=== PATIENT | female | born 1940 | race Caucasian/White ===

== ENCOUNTER 2016-10-31 17:55 | Inpatient (IN) | payer MEDICARE, OTHER ==
[~2016-10-31] VITALS: Ht 157.5 cm; Wt 61.7 kg
[2016-10-31] MEDS ORDERED: SODIUM CHLOR 0.9% 1000 ML INJ 1,000 ML IV SCH (18:07)
[2016-10-31 18:15] VITALS: RESP 18; O2SAT 99
[2016-10-31] MEDS ORDERED: SODIUM CHLORIDE 0.9% FLUSH 5 ML FLUSH IV FLUSH PRN ×2 (18:15→20:15)
[2016-10-31 18:19] VITALS: BP 135/69; PULSE 76; RESP 18; TEMP 98.2; O2SAT 98
--- NOTE | 2016-10-31 18:36 | RADRPT ---
EXAM DATE/TIME: 10/31/2016 18:03 [facility] COMPARISON: No previous studies available for comparison. INDICATIONS : General weakness. MEDICAL HISTORY : Stroke. SURGICAL HISTORY : None. ENCOUNTER: Initial ACUITY: 1 day PAIN SCORE: 0/10 LOCATION: Bilateral chest FINDINGS: A single view of the chest demonstrates the lungs to be symmetrically aerated without evidence of mas s, infiltrate or effusion. The cardiomediastinal contours are unremarkable. Osseous structures are intact. CONCLUSION: No evidence of acute cardiopulmonary disease. Sanket Paredes MD on October 31, 2016 at 18:34 Board Certified Radiologist. This report was verified electronically.
[2016-10-31 18:37] LABS: AUTOMATED NEUTROPHIL # 1.6 TH/MM3 (1.8-7.7); EOSINOPHIL # 0.4 TH/MM3 (0-0.4); EOSINOPHIL % 8.8 % (0.0-4.0); HEMATOCRIT 28.8 % (35.0-46.0); HEMO FLAGS DIFF FINAL; LYMPH % 46.3 % (9.0-44.0); LYMPHOCYTE # 1.9 TH/MM3 (1.0-4.8); MEAN CELL VOLUME 97.2 FL (80.0-100.0); MEAN CORPUSCULAR HEMOGLOBIN 33.1 PG (27.0-34.0); MEAN CORPUSCULAR HGB CONC 34.1 % (32.0-36.0); MONO % 5.2 % (0.0-8.0); NEUT % 38.7 % (16.0-70.0); PLATELET COUNT 205 TH/MM3 (150-450); RED BLOOD COUNT 2.96 MIL/MM3 (4.00-5.30); RED CELL DISTRIBUTION WIDTH 14.3 % (11.6-17.2); WHITE BLOOD COUNT 4.1 TH/MM3 (4.0-11.0)
[2016-10-31 18:49] LABS: APTT (PATIENT) 28.8 SEC (24.3-30.1); PROTHROMBIN TIME - PATIENT 10.8 SEC (9.8-11.6)
--- NOTE | 2016-10-31 18:53 | PD ---
HPI Chief Complaint: General Weakness Time Seen by Provider: 18:02 Travel History International Travel<30 days: No Contact w/Intl Traveler<30days: No Traveled to known affect area: No History of Present Illness HPI This 76 year-old woman who presents to the emergency department for weakness. Patient lives in an independent living [facility]. She normally walks with a walker but is independent and the rest of her ADLs. She states she gets intermittent episodes of confusion, with speech difficulties and weakness that usually last about an hour so. She started getting similar symptoms earlier this morning, progressively worse throughout the day. She called EMS because she was worried about the speech difficulties weakness and some confusion. She had a CVA in September 2012 but has minimal residual symptoms. She does have a history of Alzheimer's disease with memory problems. She otherwise has been feeling generally well and healthy. Denies any recent illness or injury. History Past Medical History Narrative Medical CVA September 2012 COPD Hypertension Alzheimer's disease Depression Leg cramps Migraines Pulmonary hypertension Social History Alcohol Use: No Tobacco Use: No Allergies-Medications (Allergen,Severity, Reaction): Coded Allergies: Latex (Verified Allergy, Unknown, 10/31/16) Lomotil (Verified Allergy, Unknown, 10/31/16) Quinolones (Verified Allergy, Unknown, 10/31/16) Review of Systems Except as stated in HPI: all other systems reviewed are Neg Physical Exam Narrative GENERAL: 76 year-old woman, well-appearing, nontoxic. SKIN: Focused skin assessment warm/dry. HEAD: Atraumatic. Normocephalic. EYES: Pupils equal and round. No scleral icterus. No injection or drainage. ENT: No nasal bleeding or discharge. Mucous membranes pink and moist. NECK: Trachea midline. No JVD. CARDIOVASCULAR: Regular rate and rhythm. No murmur appreciated. RESPIRATORY: No accessory muscle use. Clear to auscultation. Breath sounds equal bilaterally. GASTROINTESTINAL: Abdomen soft, non-tender, nondistended. Hepatic and splenic margins not palpable. MUSCULOSKELETAL: No obvious deformities. No clubbing. No cyanosis. No edema. NEUROLOGICAL: Awake and alert. No obvious facial asymmetry. Strength is intact and equal throughout the upper or lower extremity is. No gross sensory deficits. She does have intermittent speech difficulties. It is not clearly expressively aphasia but more of at word finding problems. She does express some confusion. She intermittently will follow commands, and appears a little bit giddy with emotional lability. PSYCHIATRIC: Little bit giddy and inappropriate.. Data Data Last Documented VS Vital Signs Date Time Temp Pulse Resp B/P Pulse Ox O2 Delivery O2 Flow Rate FiO2 10/31/16 18:21 75 18 98 Nasal Cannula 2 10/31/16 18:19 98.2 135/69 Orders Electrocardiogram (10/31/16 18:07) Ammonia (10/31/16 18:07) Complete Blood Count With Diff (10/31/16 18:07) Comprehensive Metabolic Panel (10/31/16 18:07) Prothrombin Time / Inr (Pt) (10/31/16 18:07) Act Partial Throm Time (Ptt) (10/31/16 18:07) Troponin I (10/31/16 18:07) Thyroid Stimulating Hormone (10/31/16 18:07) Urinalysis - C+S If Indicated (10/31/16 18:) Chest, Single Ap (10/31/16 18:07) Ct Brain W/O Iv Contrast(Rout) (10/31/16 18:07) Blood Glucose (10/31/16 18:07) Ecg Monitoring (10/31/16 18:07) Iv Access Insert/Monitor (10/31/16 18:07) Cath For Specimen (10/31/16 18:07) Oximetry (10/31/16 18:07) Sodium Chloride 0.9% Flush (Ns Flush) (10/31/16 18:15) Sodium Chlor 0.9% 1000 Ml Inj (Ns 1000 M (10/31/16 18:07) Drug Screen, Random Urine (10/31/16 18:07) Alcohol (Ethanol) (10/31/16 18:07) Labs Laboratory Tests Test 10/31/16 18:11 White Blood Count 4.1 TH/MM3 Red Blood Count 2.96 MIL/MM3 Hemoglobin 9.8 GM/DL Hematocrit 28.8 % Mean Corpuscular Volume 97.2 FL Mean Corpuscular Hemoglobin 33.1 PG Mean Corpuscular Hemoglobin 34.1 % Concent Red Cell Distribution Width 14.3 % Platelet Count 205 TH/MM3 Mean Platelet Volume 8.4 FL Neutrophils (%) (Auto) 38.7 % Lymphocytes (%) (Auto) 46.3 % Monocytes (%) (Auto) 5.2 % Eosinophils (%) (Auto) 8.8 % Basophils (%) (Auto) 1.0 % Neutrophils # (Auto) 1.6 TH/MM3 Lymphocytes # (Auto) 1.9 TH/MM3 Monocytes # (Auto) 0.2 TH/MM3 Eosinophils # (Auto) 0.4 TH/MM3 Basophils # (Auto) 0.0 TH/MM3 CBC Comment DIFF FINAL Differential Comment MDM Medical Decision Making Medical Screen Exam Complete: Yes Emergency Medical Condition: Yes Interpretation(s) My review of EKG: Normal sinus rhythm at a rate of 71, leftward axis, normal intervals, no definite evidence of acute ischemia. Differential Diagnosis CVA, infection, recrudescence of old stroke symptoms, weakness, electrolyte abnormality, other Narrative Course Medical decision making This is a 76 year-old woman who presents to the emergency department complaining of speech difficulties, weakness, with some confusion. 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 We'll check CT, labs, x-ray, urinalysis, reassess. Dell Reed MD Oct 31, 2016 18:53
[2016-10-31 18:59] LABS: ANION GAP 8 MEQ/L (5-15); AST (GOT) 18 U/L (15-37); BICARBONATE 26.3 MEQ/L (21.0-32.0); BLOOD UREA NITROGEN 21 MG/DL (7-18); CHLORIDE 106 MEQ/L (98-107); GLOMERULAR FILTRATION RATE 56 ML/MIN (>89); POTASSIUM 3.8 MEQ/L (3.5-5.1); SODIUM (NA) 140 MEQ/L (136-145)
--- NOTE | 2016-10-31 18:59 | RADRPT ---
EXAM DATE/TIME: 10/31/2016 18:29 [facility] COMPARISON: No previous studies available for comparison. INDICATIONS : Altered mental status. RADIATION DOSE: 56.35 CTDIvol (mGy) MEDICAL HISTORY : Stroke. Dementia. SURGICAL HISTORY : None. ENCOUNTER: Initial ACUITY: 1 day PAIN SCALE: 0/10 LOCATION: Bilateral head TECHNIQUE: Multiple contiguous axial images were obtained of the head. Using automated exposure control and adj ustment of the mA and/or kV according to patient size, radiation dose was kept as low as reasonably a chievable to obtain optimal diagnostic quality images. DICOM format image data is available electro nically for review and comparison. FINDINGS: CEREBRUM: The ventricles are normal for age. No evidence of midline shift, mass lesion, hemorrhage or acute in farction. No extra-axial fluid collections are seen. POSTERIOR FOSSA: The cerebellum and brainstem are intact. The 4th ventricle is midline. The cerebellopontine angle i s unremarkable. EXTRACRANIAL: The visualized portion of the orbits is intact. SKULL: The calvaria is intact. No evidence of skull fracture. CONCLUSION: Normal examination for a patient of this age. Andrews Andrews MD on October 31, 2016 at 18:56 Board Certified Radiologist. This report was verified electronically.
[2016-10-31 19:00] LABS: ALT (GPT) 19 U/L (10-53)
[2016-10-31 19:10] LABS: ALKALINE PHOSPHATASE 86 U/L (45-117); TOTAL BILIRUBIN ADULT 0.1 MG/DL (0.2-1.0)
[2016-10-31 19:14] VITALS: BP 173/77; PULSE 71; RESP 18; O2SAT 97
[2016-10-31 19:28] LABS: BLOOD, URINE SMALL (NEG); GLUCOSE,URINE NEG (NEG); HYALINE CAST, URINE 2 /lpf (RARE); KETONE, URINE NEG (NEG); NITRITE,URINE NEG (NEG); PH, URINE 5.5 (5.0-8.5); URINE COLOR YELLOW (YELLW/STRAW)
[2016-10-31 19:29] LABS: COMMENT (UR) CATH-CULT NOT IND; CULTURE IF INDICATED CATH CULTURE NOT IND
[2016-10-31 19:35] LABS: AMPHETAMINE, URINE NEG (NEG); BARBITURATES, URINE NEG (NEG); COCAINE, URINE NEG (NEG)
[2016-10-31] MEDS ORDERED: SALI0.653 EACH NARE (19:39)
[2016-10-31] MEDS ORDERED: NITRSPR6 PO (19:39)
[2016-10-31] MEDS ORDERED: FIOR30CA12 PO (19:39)
[2016-10-31] MEDS ORDERED: FOLI400T PO (19:39)
[2016-10-31] MEDS ORDERED: FISH100020 PO (19:39)
[2016-10-31] MEDS ORDERED: MOME17I EACH NARE (19:39)
[2016-10-31] MEDS ORDERED: BROV15NE NEB (19:39)
[2016-10-31] MEDS ORDERED: VITA400T20 PO (19:39)
[2016-10-31] MEDS ORDERED: MONT10TA2 PO (19:39)
[2016-10-31] MEDS ORDERED: LISI-515 PO (19:39)
[2016-10-31] MEDS ORDERED: CHOL4POW3 PO (19:39)
[2016-10-31] MEDS ORDERED: QUIN324C2 PO (19:39)
[2016-10-31] MEDS ORDERED: MULTTAB4 PO (19:39)
[2016-10-31] MEDS ORDERED: VITA250T3 PO (19:39)
[2016-10-31] MEDS ORDERED: WELL200T PO (19:39)
[2016-10-31] MEDS ORDERED: VITA250T25 PO (19:39)
[2016-10-31] MEDS ORDERED: VITATAB11 PO (19:39)
[2016-10-31] MEDS ORDERED: CALC600T25 PO (19:39)
[2016-10-31] MEDS ORDERED: GABA300C5 PO (19:39)
[2016-10-31] MEDS ORDERED: VITD400 PO (19:39)
[2016-10-31] MEDS ORDERED: CLAR10TA7 PO (19:39)
[2016-10-31] MEDS ORDERED: MEMA28CA PO (19:39)
[2016-10-31] MEDS ORDERED: ARIC23TA PO (19:39)
[2016-10-31] MEDS ORDERED: CYCL1TAB29 PO (19:39)
[2016-10-31] MEDS ORDERED: GUAI400T8 PO (19:39)
[2016-10-31] MEDS ORDERED: EPIN0.3A2 IM (19:39)
[2016-10-31] MEDS ORDERED: IBUP800T23 PO (19:39)
[2016-10-31] MEDS ORDERED: SPIRCAP INH (19:39)
--- NOTE | 2016-10-31 19:50 | PD ---
Data Data Last Documented VS Vital Signs Date Time Temp Pulse Resp B/P Pulse Ox O2 Delivery O2 Flow Rate FiO2 10/31/16 19:14 71 18 173/77 97 10/31/16 18:21 Nasal Cannula 2 10/31/16 18:19 98.2 Orders Electrocardiogram (10/31/16 18:07) Ammonia (10/31/16 18:07) Complete Blood Count With Diff (10/31/16 18:07) Comprehensive Metabolic Panel (10/31/16 18:07) Prothrombin Time / Inr (Pt) (10/31/16 18:07) Act Partial Throm Time (Ptt) (10/31/16 18:07) Troponin I (10/31/16 18:07) Thyroid Stimulating Hormone (10/31/16 18:07) Urinalysis - C+S If Indicated (10/31/16 18:07) Chest, Single Ap (10/31/16 18:07) Ct Brain W/O Iv Contrast(Rout) (10/31/16 18:07) Blood Glucose (10/31/16 18:07) Ecg Monitoring (10/31/16 18:07) Iv Access Insert/Monitor (10/31/16 18:07) Cath For Specimen (10/31/16 18:07) Oximetry (10/31/16 18:07) Sodium Chloride 0.9% Flush (Ns Flush) (10/31/16 18:15) Sodium Chlor 0.9% 1000 Ml Inj (Ns 1000 M (10/31/16 18:07) Drug Screen, Random Urine (10/31/16 18:07) Alcohol (Ethanol) (10/31/16 18:11) Labs Laboratory Tests Test 10/31/16 10/31/16 18:11 18:55 White Blood Count 4.1 TH/MM3 Red Blood Count 2.96 MIL/MM3 Hemoglobin 9.8 GM/DL Hematocrit 28.8 % Mean Corpuscular Volume 97.2 FL Mean Corpuscular Hemoglobin 33.1 PG Mean Corpuscular Hemoglobin 34.1 % Concent Red Cell Distribution Width 14.3 % Platelet Count 205 TH/MM3 Mean Platelet Volume 8.4 FL Neutrophils (%) (Auto) 38.7 % Lymphocytes (%) (Auto) 46.3 % Monocytes (%) (Auto) 5.2 % Eosinophils (%) (Auto) 8.8 % Basophils (%) (Auto) 1.0 % Neutrophils # (Auto) 1.6 TH/MM3 Lymphocytes # (Auto) 1.9 TH/MM3 Monocytes # (Auto) 0.2 TH/MM3 Eosinophils # (Auto) 0.4 TH/MM3 Basophils # (Auto) 0.0 TH/MM3 CBC Comment DIFF FINAL Differential Comment Prothrombin Time 10.8 SEC Prothromb Time International 1.0 RATIO Ratio Activated Partial 28.8 SEC Thromboplast Time Sodium Level 140 MEQ/L Potassium Level 3.8 MEQ/L Chloride Level 106 MEQ/L Carbon Dioxide Level 26.3 MEQ/L Anion Gap 8 MEQ/L Blood Urea Nitrogen 21 MG/DL Creatinine 0.97 MG/DL Estimat Glomerular Filtration 56 ML/MIN Rate Random Glucose 80 MG/DL Calcium Level 8.0 MG/DL Total Bilirubin 0.1 MG/DL Aspartate Amino Transf 18 U/L (AST/SGOT) Alanine Aminotransferase 19 U/L (ALT/SGPT) Alkaline Phosphatase 86 U/L Ammonia 19 MCMOL/L Troponin I LESS THAN 0.02 NG/ML Total Protein 6.0 GM/DL Albumin 3.2 GM/DL Thyroid Stimulating Hormone 2.410 uIU/ML 3rd Gen Ethyl Alcohol Level LESS THAN 3 MG/DL Urine Color YELLOW Urine Turbidity CLEAR Urine pH 5.5 Urine Specific Ethan 1.009 Urine Protein NEG mg/dL Urine Glucose (UA) NEG mg/dL Urine Ketones NEG mg/dL Urine Occult Blood SMALL Urine Nitrite NEG Urine Bilirubin NEG Urine Urobilinogen LESS THAN 2.0 MG/DL Urine Leukocyte Esterase NEG Urine RBC 1 /hpf Urine WBC LESS THAN 1 /hpf Urine Hyaline Casts 2 /lpf Microscopic Urinalysis Comment CATH-CULT NOT IND Urine Opiates Screen NEG Urine Barbiturates Screen NEG Urine Amphetamines Screen NEG Urine Benzodiazepines Screen NEG Urine Cocaine Screen NEG Urine Cannabinoids Screen NEG MDM Supervised Visit with JEMIMA: No Narrative Course Patient signed out to me by previous provider. Please see associated no for further details. In short patient is a 76-year-old female with history of previous CVA who is been having intermittent spells of aphasia and weakness that have been lasting less than one hour. Today however she has been having speech difficulty, primarily word finding difficulty all day. There are no other focal neural findings. CT of the brain was negative. Patient signout to me pending laboratory workup for ultimate admission for TIA versus CVA. Laboratory workup notable for hemoglobin 9.8. Calcium slightly low at 8.0. Chest x-ray and head CT were reviewed and negative. Patient will be admitted for further neuro workup. Diagnosis Primary Impression: Word finding difficulty Additional Impression: CVA (cerebral vascular accident) Qualified Code: I63.9 - Cerebrovascular accident (CVA), unspecified mechanism Admitting Information Admitting Physician Requests: Admit Cindi Li MD Oct 31, 2016 19:50
[2016-10-31] MEDS ORDERED: MORPHINE SULFATE 4 MG/ML INJ IV PRN (20:15)
[2016-10-31] MEDS ORDERED: ACETAMINOPHEN 325 MG TAB PO PRN (20:15)
[2016-10-31] MEDS ORDERED: ENALAPRILAT 1.25 MG/ML VIAL IV PRN (20:15)
[2016-10-31] MEDS ORDERED: DEXTROSE 50% IN WATER 50 ML VIAL(D50) IV PUSH PRN (20:15)
[2016-10-31] MEDS ORDERED: SODIUM CHLORIDE 0.9% FLUSH 10 ML FLUSH IV FLUSH PRN (20:15)
[2016-10-31] MEDS ORDERED: GLUCAGON 1 MG/ML VIAL OTHER PRN (20:15)
[2016-10-31] MEDS ORDERED: BISACODYL 10 MG SUPP RECTAL PRN (20:15)
[2016-10-31] MEDS ORDERED: MAGNESIUM HYDROXIDE SUSP 30 ML CUP PO PRN (20:15)
[2016-10-31] MEDS ORDERED: LACTULOSE SYRUP 20 GM/30 ML CUP PO PRN (20:15)
[2016-10-31] MEDS ORDERED: SENNOSIDES 8.6 MG TAB PO PRN (20:15)
[2016-10-31] MEDS ORDERED: ONDANSETRON HCL 4 MG/2 ML VIAL IVP PRN (20:15)
--- NOTE | 2016-10-31 20:19 | HHI.HP ---
[facility] No Primary Care Physician Admission Diagnosis CVA, word-finding difficulties Diagnoses: (1) CVA (cerebral vascular accident) Diagnosis: Principal (2) HTN (hypertension) Diagnosis: Principal (3) Dehydration Diagnosis: Principal (4) COPD (chronic obstructive pulmonary disease) Diagnosis: Principal (5) Dementia Diagnosis: Principal Travel History International Travel<30 Days: No Contact w/Intl Traveler <30 Da: No Traveled to Known Affected Are: No History of Present Illness This is a 76-year-old female with a PMH of HTN, COPD, Dementia, Depression and h /o CVA who presented to the ER with complaints of generalized weakness in addition to intermittent episodes of speech difficulty. Per patient, she is noted "stuttering" of her speech over the last 1wk. Symptoms would last approx 1 hour and then resolve, thought she was having mini stroke, did not seek medical attention as symptoms resolved. Today, w/ recurrent stuttering/speech difficulty, however symptoms persistent. Denies motor weakness or facial droop. On arrival, BP 135/69, HR 76, O2 sat 98% on 2L NC, afebrile. CBC unremarkable except for anemia, hemoglobin 9.8, no previous labs for comparison. BUN 21, GFR 56. INR 1.0. UA negative. Urine Drug screen negative. Alcohol negative. CXR with no acute findings. CT Head normal. Review of Systems Except as stated in HPI: all other systems reviewed are Neg ROS: 14 point review of systems otherwise negative. Past Family Social History Past Medical History PMH: HTN, COPD, Dementia, Depression and h/o CVA Past Surgical History PAST SURGICAL HISTORY: None Allergies: Coded Allergies: Latex (Verified Allergy, Unknown, 10/31/16) Lomotil (Verified Allergy, Unknown, 10/31/16) Quinolones (Verified Allergy, Unknown, 10/31/16) Family History PAST FAMILY HISTORY: Reviewed. No h/o DM or CAD Social History PAST SOCIAL HISTORY: Negative for alcohol, tobacco or drugs. Physical Exam Vital Signs Vital Signs Date Time Temp Pulse Resp B/P Pulse Ox O2 Delivery O2 Flow Rate FiO2 10/31/16 19:14 71 18 173/77 97 10/31/16 18:21 75 18 98 Nasal Cannula 2 10/31/16 18:19 98.2 76 18 135/69 98 Nasal Cannula 2 10/31/16 18:15 18 99 Room Air Physical Exam PE: GENERAL: Elderly female in no acute distress. HEENT: PERRLA, EOMI. No scleral icterus or conjunctival pallor. No lid lag or facial droop. CARDIOVASCULAR: Regular rate and rhythm. No obvious murmurs to auscultation. No chest tenderness to palpation. RESPIRATORY: No obvious rhonchi or wheezing. Clear to auscultation. Breath sounds equal bilaterally. GASTROINTESTINAL: Abdomen soft, non-tender, nondistended. BS normal. MUSCULOSKELETAL: Extremities without clubbing, cyanosis, or edema. No obvious deformities. NEUROLOGICAL: Awake, alert and oriented x4. Episodes of word finding difficulty and expressive aphasia. No focal neurologic deficits. Moving both upper and lower extremities spontaneously. Laboratory Laboratory Tests Test 10/31/16 10/31/16 18:11 18:55 White Blood Count 4.1 Red Blood Count 2.96 Hemoglobin 9.8 Hematocrit 28.8 Mean Corpuscular Volume 97.2 Mean Corpuscular Hemoglobin 33.1 Mean Corpuscular Hemoglobin 34.1 Concent Red Cell Distribution Width 14.3 Platelet Count 205 Mean Platelet Volume 8.4 Neutrophils (%) (Auto) 38.7 Lymphocytes (%) (Auto) 46.3 Monocytes (%) (Auto) 5.2 Eosinophils (%) (Auto) 8.8 Basophils (%) (Auto) 1.0 Neutrophils # (Auto) 1.6 Lymphocytes # (Auto) 1.9 Monocytes # (Auto) 0.2 Eosinophils # (Auto) 0.4 Basophils # (Auto) 0.0 CBC Comment DIFF FINAL Differential Comment Prothrombin Time 10.8 Prothromb Time International 1.0 Ratio Activated Partial 28.8 Thromboplast Time Sodium Level 140 Potassium Level 3.8 Chloride Level 106 Carbon Dioxide Level 26.3 Anion Gap 8 Blood Urea Nitrogen 21 Creatinine 0.97 Estimat Glomerular Filtration 56 Rate Random Glucose 80 Calcium Level 8.0 Total Bilirubin 0.1 Aspartate Amino Transf 18 (AST/SGOT) Alanine Aminotransferase 19 (ALT/SGPT) Alkaline Phosphatase 86 Ammonia 19 Troponin I LESS THAN 0.02 Total Protein 6.0 Albumin 3.2 Thyroid Stimulating Hormone 2.410 3rd Gen Ethyl Alcohol Level LESS THAN 3 Urine Color YELLOW Urine Turbidity CLEAR Urine pH 5.5 Urine Specific [place] 1.009 Urine Protein NEG Urine Glucose (UA) NEG Urine Ketones NEG Urine Occult Blood SMALL Urine Nitrite NEG Urine Bilirubin NEG Urine Urobilinogen LESS THAN 2.0 Urine Leukocyte Esterase NEG Urine RBC 1 Urine WBC LESS THAN 1 Urine Hyaline Casts 2 Microscopic Urinalysis Comment CATH-CULT NOT IND Urine Opiates Screen NEG Urine Barbiturates Screen NEG Urine Amphetamines Screen NEG Urine Benzodiazepines Screen NEG Urine Cocaine Screen NEG Urine Cannabinoids Screen NEG Result Diagram: 10/31/16181010/31/161810 Assessment and Plan Problem List: (1) CVA (cerebral vascular accident) ICD Code: I63.9 Status: Acute (2) Dehydration ICD Code: E86.0 Status: Acute (3) Dementia ICD Code: F03.90 Status: Acute (4) COPD (chronic obstructive pulmonary disease) ICD Code: J44.9 Status: Acute (5) HTN (hypertension) ICD Code: I10 Status: Acute Assessment and Plan A/P: 1. CVA: intermittent episodes of stuttering/word finding difficulty x1 wk, now w/ persistent symptoms. H/o CVA. CT Head w/ no acute findings, images reviewed by me. NPO, IVF, Check MRI/Carotids, Check Echo, Lipid Profile, Hgb A1c, PT/Speech eval. Consult Neurology for further evaluation. 2. Dehydration: BUN 21, GFR 56, no previous labs for comparison. U/a negative. IVF, repeat labs in am. 3. COPD: Chronic Respiratory Failure. Stable. Resume home Spiriva/MDI/Neb. 4. Dementia: Stable. Resume home medications. 5. HTN: [id number]'s while in ER, hold BP meds, permissive HTN. Monitor BP, antihypertensives for BP >220 6. DVT Prophylaxis: Lovenox 7. Social work for d/c planning as needed. 8. Case discussed w/ ER physician at length. Physician Certification 2 Midnight Certification Type: Admission for Inpatient Services Order for Inpatient Services The services are ordered in accordance with Medicare regulations or non- Medicare payer requirements, as applicable. In the case of services not specified as inpatient-only, they are appropriately provided as inpatient services in accordance with the 2-midnight benchmark. Estimated LOS (days): 2 days is the estimated time the patient will need to remain in the hospital, assuming treatment plan goals are met and no additional complications. Post-Hospital Plan: Not yet determined Problem Qualifiers (1) CVA (cerebral vascular accident): Qualified Code: I63.9 - Cerebrovascular accident (CVA), unspecified mechanism Candy Coleman MD Oct 31, 2016 20:19
[2016-10-31 20:23] VITALS: O2SAT 96
[2016-10-31] MEDS: SODIUM CHLORIDE 0.9% FLUSH 10 ML FLUSH IV FLUSH SCH (20:32)
[2016-10-31] MEDS: INSULIN ASPART SUPPLEMENTAL SCALE SQ SCH (20:37)
[2016-10-31] MEDS: PRAVASTATIN SOD 40 MG TAB PO SCH (20:43)
[2016-10-31] MEDS: DOCUSATE SODIUM 50 MG/SENNA 8.6 MG TAB PO SCH (20:44)
[2016-10-31] MEDS: ENOXAPARIN SODIUM 40 MG/0.4 ML SYRINGE SQ SCH (20:44)
[2016-10-31] MEDS ORDERED: SODIUM CHLORIDE 0.9% FLUSH 5 ML FLUSH IV FLUSH SCH (21:00)
[2016-10-31 21:06] VITALS: BP 160/77; PULSE 71; RESP 18; TEMP 96; O2SAT 98
--- NOTE | 2016-10-31 22:01 | RADRPT ---
EXAM DATE/TIME: 10/31/2016 21:11 [facility] COMPARISON: No previous studies available for comparison. INDICATIONS : Cerebrovascular accident. MEDICAL HISTORY : Hypercholesterolemia. Chronic obstructive pulmonary disease. Hypertension. Cerebrovascular accident. Alzheimer's disease. depression. SURGICAL HISTORY : None. ENCOUNTER: Initial ACUITY: 1 day PAIN SCORE: 8/10 LOCATION: Bilateral neck. PEAK SYSTOLIC VELOCITIES (cm/sec): ICA/CCA RATIO: Right: 0.9 Left: 0.9 ICA: Right: 72.8 Left: 65.1 CCA: Right: 84.7 Left: 72.9 ECA: Right: 72.8 Left: 74.7 VERTEBRAL: Right: 53.1 antegrade Left: 51.0 antegrade Elevated flow velocities and ICA/CCA ratios have been found to correlate with increased degrees of vessel stenosis, calculated as percentage of diameter relative to a normal segment of distal ICA/CCA FINDINGS: RIGHT CAROTID: No significant stenosis is visualized. The waveforms are within normal limits. LEFT CAROTID: No significant stenosis is visualized. The waveforms are within normal limits. VERTEBRAL ARTERIES: Antegrade flow is seen in both vertebral arteries. MISCELLANEOUS: None. CONCLUSION: 1. Mild visible plaque formation in the carotid arteries bilaterally without hemodynamically signific ant stenosis. Andrews Andrews MD on October 31, 2016 at 21:57 Board Certified Radiologist. This report was verified electronically.
[2016-10-31 22:47] VITALS: PULSE 81
[2016-11-01] VITALS (12 sets, daily range): BP systolic 96–155; BP diastolic 53–75; PULSE 62–82; RESP 16–18; TEMP 96.6–97.1; O2SAT 94–97
[2016-11-01] MEDS: ACETAMINOPHEN/HYDROcodone 325 MG/5 MG TAB PO PRN ×5 (00:58→18:11)
[2016-11-01] MEDS: INSULIN ASPART SUPPLEMENTAL SCALE SQ SCH ×4 (07:00→20:55)
[2016-11-01] MEDS: DOCUSATE SODIUM 50 MG/SENNA 8.6 MG TAB PO SCH ×2 (08:25→20:17)
[2016-11-01] MEDS: SODIUM CHLORIDE 0.9% FLUSH 10 ML FLUSH IV FLUSH SCH ×2 (08:25→20:16)
[2016-11-01 08:28] LABS: AUTOMATED NEUTROPHIL # 1.4 TH/MM3 (1.8-7.7); BASOPHIL % 0.8 % (0.0-2.0); EOSINOPHIL # 0.3 TH/MM3 (0-0.4); EOSINOPHIL % 7.6 % (0.0-4.0); HEMO FLAGS DIFF FINAL; LYMPH % 48.4 % (9.0-44.0); LYMPHOCYTE # 1.8 TH/MM3 (1.0-4.8); MEAN CELL VOLUME 97.1 FL (80.0-100.0); MEAN CORPUSCULAR HEMOGLOBIN 33.4 PG (27.0-34.0); MEAN CORPUSCULAR HGB CONC 34.4 % (32.0-36.0); MONO % 5.3 % (0.0-8.0); NEUT % 37.9 % (16.0-70.0); PLATELET COUNT 168 TH/MM3 (150-450); RED BLOOD COUNT 2.88 MIL/MM3 (4.00-5.30); RED CELL DISTRIBUTION WIDTH 14.3 % (11.6-17.2); WHITE BLOOD COUNT 3.7 TH/MM3 (4.0-11.0)
[2016-11-01] MEDS ORDERED: ASPIRIN 81 MG CHEW TAB PO SCH (09:00)
[2016-11-01 09:03] LABS: ALKALINE PHOSPHATASE 75 U/L (45-117); ALT (GPT) 20 U/L (10-53); ANION GAP 6 MEQ/L (5-15); AST (GOT) 17 U/L (15-37); BICARBONATE 27.8 MEQ/L (21.0-32.0); BLOOD UREA NITROGEN 16 MG/DL (7-18); CHLORIDE 110 MEQ/L (98-107); GLOMERULAR FILTRATION RATE 66 ML/MIN (>89); HDL CHOLESTEROL 69.5 MG/DL (40.0-60.0); LDL CHOLESTEROL 92 MG/DL (0-99); POTASSIUM 3.8 MEQ/L (3.5-5.1); SODIUM (NA) 144 MEQ/L (136-145); TOTAL BILIRUBIN ADULT 0.2 MG/DL (0.2-1.0)
[2016-11-01] MEDS ORDERED: LORazepam 2 MG/ML VIAL IV PUSH PRN (09:45)
--- NOTE | 2016-11-01 11:05 | RADRPT ---
EXAM DATE/TIME: 11/01/2016 10:36 [facility] COMPARISON: CT BRAIN W/O CONTRAST, October 31, 2016, 18:29. INDICATIONS : Stuttering speech. MEDICAL HISTORY : Hypertension. Chronic obstructive pulmonary disease. Dementia. CVA. SURGICAL HISTORY : Hysterectomy. ENCOUNTER: Initial ACUITY: 1 day PAIN SCORE: 0/10 LOCATION: cranial TECHNIQUE: Multiplanar, multisequence MRI of the brain was performed without contrast. FINDINGS: CEREBRUM: There is mild to moderate generalized atrophy. There is mild ventriculomegaly but ventricles are norm al in size given the degree of atrophy present. No midline shift, mass lesion, hemorrhage or acute i nfarction. No extraaxial fluid collections are seen. The pituitary gland and suprasellar cistern ar e normal in configuration. WHITE MATTER: There is mild periventricular white matter and subcortical white matter signal change. POSTERIOR FOSSA: The cerebellum and brainstem demonstrate no acute finding. The 4th ventricle is midline. The cerebel lopontine angle is unremarkable. The cerebellar tonsils are normal in position. DIFFUSION IMAGING: No focal areas of restricted diffusion are seen. No evidence of acute infarction. EXTRACRANIAL: The visualized portions of the orbits and paranasal sinuses are unremarkable. CONCLUSION: 1. No acute intracranial abnormality is identified. There are no findings to indicate recent ischemia . 2. Nonacute findings include generalized atrophy and mild periventricular and subcortical white matte r signal change characteristic of chronic microvascular ischemia. Sanket Perdue MD on November 01, 2016 at 11:01 Board Certified Radiologist. This report was verified electronically.
[2016-11-01 12:52] LABS: HEMOGLOBIN A1b 1.5 %; HEMOGLOBIN Ao 85.8 %; HEMOGLOBIN LA1C 1.9 %; HEMOGLOBIN P3 5.3 %
[2016-11-01] MEDS: TOPIRAMATE 25 MG TAB PO SCH ×2 (13:17→20:17)
--- NOTE | 2016-11-01 13:21 | MB ---
cc: BRITTANY CHRISTIAN DATE OF CONSULTATION: 11/01/2016. REASON FOR CONSULTATION: TIA. HISTORY OF PRESENT ILLNESS: The patient is a 76-year-old female who tells me she has Alzheimer's disease and has been having TIAs. She states she that she gets spells once a day for the past year where she suddenly may get slurred speech and balance difficulty. This usually resolves after 15 minutes but yesterday had an episode lasting six hours with resolution. She does have a history of migraine headaches. PAST MEDICAL HISTORY: 1. She tells me that she has "Alzheimer's dementia" since 2008. 2. She has a history of stroke in the past. 3. Hypertension. 4. COPD. 5. Depression. ALLERGIES: 1. LATEX. 2. LOMOTIL. 3. QUINOLONES. CURRENT MEDICATIONS: 1. Aspirin 81 milligrams daily. 2. Ativan PRN. 3. Pravachol 40 milligrams daily. 4. Insulin. 5. Enalapril PRN. 6. Morphine sulfate PRN. 7. Hydrocodone PRN. 8. Acetaminophen PRN. NEUROLOGICAL EXAMINATION: VITAL SIGNS: Her blood pressure is 148/70, pulse is 82, respirations 16, temperature 96.7 degrees. HIGHER CORTICAL FUNCTIONS: She is alert and oriented x3 and recalls one out of three objects in three minutes. Her remote memory is normal. She can name objects normally. Her calculations are normal. Speech is fluent with no errors. CRANIAL NERVES: Intact. MOTOR EXAM: Motor exam is normal with normal strength and tone. REFLEXES: Reflexes are symmetric. There is no Babinski. CEREBELLAR: Normal. IMAGING STUDIES: MRI of the brain shows chronic ischemic and atrophy. No acute change. No evidence of any acute ischemia. Carotid ultrasound shows mild plaquing bilaterally without significant stenosis. CT of the brain was normal for age. LABS: White count 3700, hemoglobin 9.6, hematocrit 28%, platelet count 168,000. Sodium is 144, potassium 3.8, chloride 110, carbon dioxide is 27.8, the BUN is 16, creatinine 0.84, GFR is 66, glucose 80 yesterday and today 44. AST 18, ALT 19. Triglycerides 124, cholesterol 186, LDL 92, HDL is 69.5. Tox screen is negative. Urinalysis shows pH 5.5, specific gravity 1.009. IMPRESSION: Intermittent episodes of dysarthria and ataxia. The frequency would be very unlikely to be TIAs given the fact that she states she has had these daily for the past year. 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 RECOMMENDATIONS: 1. Will start Topamax 25 milligrams twice a day for migraines. 2. Increase the aspirin to 325 milligrams daily for possible TIAs. 3. Also check echocardiogram. 4. Regarding her dementia, she may have a mild cognitive impairment. I do not find any definite signs of Alzheimer's disease at this time, however. MD RELL Cunningham/KAE /12:38 PM /1:10 PM
--- NOTE | 2016-11-01 14:12 | HHI.PR ---
Subjective Remarks Follow-up for word finding difficulties Word finding difficulties improving, not her deficits. Denies any headache. No nausea or vomiting. Alert and oriented. Objective Vitals Vital Signs Date Time Temp Pulse Resp B/P Pulse Ox O2 Delivery O2 Flow Rate FiO2 11/01/16 12:25 96.7 82 16 148/70 96 11/01/16 07:32 96.7 67 17 129/69 96 11/01/16 03:32 96.7 71 18 137/66 94 11/01/16 01:12 72 11/01/16 01:10 72 124/71 11/01/16 00:37 96.6 72 17 96/53 97 10/31/16 22:47 81 10/31/16 21:06 96.0 71 18 160/77 98 10/31/16 20:23 96 10/31/16 19:14 71 18 173/77 97 10/31/16 18:21 75 18 98 Nasal Cannula 2 10/31/16 18:19 98.2 76 18 135/69 98 Nasal Cannula 2 10/31/16 18:15 18 99 Room Air I/O 10/31/16 10/31/16 10/31/16 11/01/16 11/01/16 11/01/16 06:59 14:59 22:59 06:59 14:59 22:59 Intake Total 360 ml 480 ml Balance 360 ml 480 ml Intake Oral 360 ml 480 ml # Voids 2 2 1 # Bowel Movements 0 0 Result Diagram: 11/01/16 0714 11/01/16 0719 Imaging Last Impressions Brain MRI 11/01/16 0000 Signed Impressions: Service Date/Time: Tuesday, November 01, 2016 10:36 - CONCLUSION: 1. No acute intracranial abnormality is identified. There are no findings to indicate recent ischemia. 2. Nonacute findings include generalized atrophy and mild periventricular and subcortical white matter signal change characteristic of chronic microvascular ischemia. Sanket Perdue MD Head CT 10/31/161806 Signed Impressions: Service Date/Time: Monday, October 31, 2016 18:29 - CONCLUSION: Normal examination for a patient of this age. Andrews Andrews MD Chest X-Ray 10/31/161806 Signed Impressions: Service Date/Time: Monday, October 31, 2016 18:03 - CONCLUSION: No evidence of acute cardiopulmonary disease. Sanket Paredes MD Carotid Artery Ultrasound 10/31/16 0000 Signed Impressions: Service Date/Time: Monday, October 31, 2016 21:11 - CONCLUSION: 1. Mild visible plaque formation in the carotid arteries bilaterally without hemodynamically significant stenosis. Andrews Andrews MD Objective Remarks Not in distress HEENT: [place]. CARDIOVASCULAR: Regular rate and rhythm. No obvious murmurs to auscultation. No chest tenderness to palpation. RESPIRATORY: No obvious rhonchi or wheezing. Clear to auscultation. Breath sounds equal bilaterally. GASTROINTESTINAL: Abdomen soft, non-tender, nondistended. BS normal. NEUROLOGICAL: Awake, alert and oriented x4. Very mild word finding difficulty otherwise no other deficits. Muscle strength testing is normal. A/P Problem List: (1) CVA (cerebral vascular accident) ICD Code: I63.9 Status: Acute (2) Dehydration ICD Code: E86.0 Status: Acute (3) Dementia ICD Code: F03.90 Status: Acute (4) COPD (chronic obstructive pulmonary disease) ICD Code: J44.9 Status: Acute (5) HTN (hypertension) ICD Code: I10 Status: Acute Assessment and Plan This is a 68-year-old female who presented with word finding difficulty 1. Complicated migraine versus TIA- intermittent episodes of stuttering/word finding difficulty x1 wk, now w/ persistent symptoms. H/o CVA. CT Head w/ no acute findings, MRI was unremarkable, did not show any stroke. Carotid ultrasound showed plaques but no significant stenosis. Stop IVF. Open A1c is normal, LDL is 92. Awaiting physical therapy evaluation. Neurology consulted, possible complicated migraine, follow-up echocardiogram, Topamax started, aspirin increased. Could also be from polypharmacy, will need medical reconciliation by primary care physician. Hold Flexeril, and loratadine. Restart Fioricet. 2. Dehydration: BUN 21, GFR 56, no previous labs for comparison. U/a negative. Stop IVF. Resolved. 3. COPD: Chronic Respiratory Failure. Stable. Resume home Spiriva/MDI/Neb. 4. Dementia: Per neurology more of cognitive deficits, doubt dementia, continue medications for now, follow up with PCP for medical reconciliation. 5. HTN: Blood pressure stable-May restart lisinopril. 6. Hypoglycemia-asymptomatic, hemoglobin A1c 5.2. Blood glucose per her fingerstick his 80s. Monitor. DVT Prophylaxis: Lovenox Consult physical therapy Discharge Planning Discharge tomorrow if echocardiogram is normal and cleared by neurology. Problem Qualifiers (1) CVA (cerebral vascular accident): Qualified Code: I63.9 - Cerebrovascular accident (CVA), unspecified mechanism Jennifer Gama MD Nov 01, 2016 14:12
[2016-11-01] MEDS ORDERED: SODIUM CHLORIDE 0.65% NASAL SPRAY 45 ML BTL EACH NARE PRN (14:45)
[2016-11-01] MEDS ORDERED: ACETAMINOPHEN PO PRN (15:30)
[2016-11-01] MEDS ORDERED: BUTALBITAL PO PRN (15:30)
--- NOTE | 2016-11-01 17:13 | EKG ---
Date Performed: 10/31/2016 Time Performed: 18:08:05 PTAGE: 76 years EKG: Sinus rhythm MARKED LEFT AXIS DEVIATION ABNORMAL ECG NO PREVIOUS TRACING DOCTOR: Tommy Penny Interpretating Date/Time 11/01/2016 17:10:07
[2016-11-01] MEDS: GABAPENTIN 300 MG CAP PO SCH (17:40)
[2016-11-01] MEDS: IBUPROFEN 800 MG TAB PO SCH (17:40)
[2016-11-01] MEDS: ENOXAPARIN SODIUM 40 MG/0.4 ML SYRINGE SQ SCH (20:16)
[2016-11-01] MEDS: TIOTROPIUM BROMIDE 18 MCG INH INH SCH (20:17)
[2016-11-01] MEDS: buPROPion HCL 100 MG SUSTAINED RELEASE TAB PO SCH (20:17)
[2016-11-01] MEDS: PRAVASTATIN SOD 40 MG TAB PO SCH (20:17)
[2016-11-01] MEDS ORDERED: NAMENDA 28 MG PO SCH (21:00)
[2016-11-01] MEDS ORDERED: BROVANA 15 MCG/2 ML NEB SCH (21:00)
[2016-11-01] MEDS ORDERED: MONTELUKAST SODIUM 10 MG TAB PO SCH (21:00)
[2016-11-01] MEDS ORDERED: DONEPEZIL HCL 23 MG TAB PO SCH (21:00)
[2016-11-02 00:45] VITALS: BP 104/50; PULSE 72; RESP 16; TEMP 97.3; O2SAT 95
[2016-11-02 04:38] VITALS: BP 146/78; PULSE 66; RESP 16; TEMP 96.7; O2SAT 96
[2016-11-02] MEDS: INSULIN ASPART SUPPLEMENTAL SCALE SQ SCH ×2 (06:45→11:00)
[2016-11-02 08:00] VITALS: BP 158/81; PULSE 67; RESP 20; TEMP 97.9; O2SAT 94
[2016-11-02] MEDS: TIOTROPIUM BROMIDE 18 MCG INH INH SCH (08:53)
[2016-11-02 08:55] VITALS: PULSE 67
[2016-11-02] MEDS: IBUPROFEN 800 MG TAB PO SCH ×3 (08:55→14:56)
[2016-11-02] MEDS: DOCUSATE SODIUM 50 MG/SENNA 8.6 MG TAB PO SCH (08:56)
[2016-11-02] MEDS: TOPIRAMATE 25 MG TAB PO SCH (08:56)
[2016-11-02] MEDS: GABAPENTIN 300 MG CAP PO SCH ×2 (09:00→13:00)
[2016-11-02] MEDS ORDERED: CHOLESTYRAMINE 4 GM PACKET PO SCH (09:00)
[2016-11-02] MEDS: SODIUM CHLORIDE 0.9% FLUSH 10 ML FLUSH IV FLUSH SCH (09:00)
[2016-11-02] MEDS ORDERED: FLUTICASONE PROPIONATE 50 MCG/ACT 16 GM NASAL SPRAY EACH NARE SCH (09:00)
[2016-11-02] MEDS: buPROPion HCL 100 MG SUSTAINED RELEASE TAB PO SCH (09:00)
[2016-11-02] MEDS ORDERED: ASPIRIN EC 325 MG TABEC PO SCH (09:00)
[2016-11-02] MEDS ORDERED: LISINOPRIL 20 MG TAB PO SCH (09:00)
--- NOTE | 2016-11-02 09:08 | ECHRPT ---
Indication: CVA/TIA CONCLUSIONS Normal left ventricular size. Wall thickness is normal. The left ventricular systolic function is grossly normal on limited imaging. No regional wall motion abnormalities are present. Doppler parameters are consistent with impaired left ventricular relaxtion (grade 1 diastolic dysfun ction). . Aortic valve sclerosis is present. No aortic valve regurgitation. No sigmificant aortic valve stenosis. There is trace tricuspid valve regurgitation. There is estimated mild pulmonary hypertension present (range 40-50 mmHg). BP: 148 / 70 HR: 82 Rhythm: Sinus MEASUREMENTS (Male / Female) Normal Values Technical Quality:Poor 2D ECHO LV Diastolic Diameter PLAX 4.6 cm 4.2 - 5.9 / 3.9 - 5.3 cm LV Systolic Diameter PLAX 3.1 cm IVS Diastolic Thickness 1.0 cm 0.6 - 1.0 / 0.6 - 0.9 cm LVPW Diastolic Thickness 1.0 cm 0.6 - 1.0 / 0.6 - 0.9 cm LV Relative Wall Thickness 0.4 LVOT Diameter 2.1 cm Aortic Root Diameter 2.8 cm LA Systolic Diameter LX 2.7 cm 3.0 - 4.0 / 2.7 - 3.8 cm M-MODE AV Cusp Separation MM 1.5 cm DOPPLER AV Peak Velocity 159.0 cm/s AV Peak Gradient 10.1 mmHg AV Mean Gradient 5.5 mmHg AV Velocity Time Integral 39.4 cm LVOT Peak Velocity 74.4 cm/s LVOT Peak Gradient 2.2 mmHg LVOT Velocity Time Integral 20.2 cm LVOT Cardiac Index 3480.9 cm/minm AV Area Cont Eq vti 1.8 cm AV Area Cont Eq pk 1.6 cm Mitral E Point Velocity 76.5 cm/s Mitral A Point Velocity 107.0 cm/s Mitral E to A Ratio 0.7 LV E' Lateral Velocity 10.6 cm/s Mitral E to LV E' Lateral Ratio 7.2 LV E' Septal Velocity 7.6 cm/s Mitral E to LV E' Septal Ratio 10.1 TR Peak Velocity 274.0 cm/s TR Peak Gradient 30.0 mmHg PV Peak Velocity 61.7 cm/s PV Peak Gradient 1.5 mmHg FINDINGS LEFT VENTRICLE Normal left ventricular size. Wall thickness is normal. The left ventricular systolic function is grossly normal on limited imaging. No regional wall motion abnormalities are present. Doppler parameters are consistent with impaired left ventricular relaxtion (grade 1 diastolic dysfun ction). . RIGHT VENTRICLE Normal right ventricular size and systolic function. LEFT ATRIUM The left atrial size is normal. RIGHT ATRIUM The right atrial size is normal. ATRIAL SEPTUM Normal atrial septal thickness without atrial level shunting by limited color doppler interrogation. AORTA The aortic root and proximal ascending aorta are normal in size on limited imaging. MITRAL VALVE Structurally normal mitral valve. No mitral valve stenosis or regurgitation. AORTIC VALVE Aortic valve sclerosis is present. No aortic valve regurgitation. No sigmificant aortic valve stenosis. TRICUSPID VALVE Structurally normal tricuspid valve. There is trace tricuspid valve regurgitation. There is estimated mild pulmonary hypertension present (range 40-50 mmHg). PULMONARY VALVE The pulmonary valve is not well visualized. VESSELS The inferior vena cava is normal in size. PERICARDIUM No pericardial effusion. Hilton Page MD (Electronically Signed) Final Date:02 November 2016 09:07
[2016-11-02 11:13] VITALS: BP 134/69; PULSE 68; RESP 20; TEMP 98.2; O2SAT 95
[2016-11-02] MEDS ORDERED: WALKER WHEELS/F1 MIS (14:12)
[2016-11-02] MEDS ORDERED: ASPI325T33 PO (15:01)
[2016-11-02] MEDS ORDERED: TOPA25TA8 PO (15:01)
--- NOTE | 2016-11-02 15:02 | HHI.DS ---
Discharge Summary Admission Date Oct 31, 2016 at 8:14 pm Discharge Date: Nov 02, 2016 Admitting Diagnosis CVA, word-finding difficulties (1) CVA (cerebral vascular accident) ICD Code: I63.9 (2) Dehydration ICD Code: E86.0 (3) Dementia ICD Code: F03.90 (4) COPD (chronic obstructive pulmonary disease) ICD Code: J44.9 (5) HTN (hypertension) ICD Code: I10 Brief History - From Admission This is a 76-year-old female with a PMH of HTN, COPD, Dementia, Depression and h /o CVA who presented to the ER with complaints of generalized weakness in addition to intermittent episodes of speech difficulty. Per patient, she is noted "stuttering" of her speech over the last 1wk. Symptoms would last approx 1 hour and then resolve, thought she was having mini stroke, did not seek medical attention as symptoms resolved. Today, w/ recurrent stuttering/speech difficulty, however symptoms persistent. Denies motor weakness or facial droop. On arrival, BP 135/69, HR 76, O2 sat 98% on 2L NC, afebrile. CBC unremarkable except for anemia, hemoglobin 9.8, no previous labs for comparison. BUN 21, GFR 56. INR 1.0. UA negative. Urine Drug screen negative. Alcohol negative. CXR with no acute findings. CT Head normal. CBC/BMP: 11/01/16 0714 11/01/16 0719 Significant Findings Laboratory Tests Test 10/31/16 10/31/16 11/01/16 11/01/16 18:11 18:55 07:14 07:19 Red Blood Count 2.96 MIL/MM3 2.88 MIL/MM3 (4.00-5.30) (4.00-5.30) Hemoglobin 9.8 GM/DL 9.6 GM/DL (11.6-15.3) (11.6-15.3) Hematocrit 28.8 % 28.0 % (35.0-46.0) (35.0-46.0) Lymphocytes (%) (Auto) 46.3 % 48.4 % (9.0-44.0) (9.0-44.0) Eosinophils (%) (Auto) 8.8 % (0.0-4.0) 7.6 % (0.0-4.0) Neutrophils # (Auto) 1.6 TH/MM3 1.4 TH/MM3 (1.8-7.7) (1.8-7.7) Blood Urea Nitrogen 21 MG/DL (7-18) Estimat Glomerular Filtration 56 ML/MIN (>89) 66 ML/MIN (>89) Rate Calcium Level 8.0 MG/DL 7.9 MG/DL (8.5-10.1) (8.5-10.1) Total Bilirubin 0.1 MG/DL (0.2-1.0) Troponin I LESS THAN 0.02 NG/ML (0.02-0.05) Total Protein 6.0 GM/DL 5.8 GM/DL (6.4-8.2) (6.4-8.2) Albumin 3.2 GM/DL 3.0 GM/DL (3.4-5.0) (3.4-5.0) Urine Occult Blood SMALL (NEG) White Blood Count 3.7 TH/MM3 (4.0-11.0) Chloride Level 110 MEQ/L (98-107) Random Glucose 44 MG/DL (74-106) HDL Cholesterol 69.5 MG/DL (40.0-60.0) PE at Discharge Not in distress HEENT: PERRLA, EOMI. CARDIOVASCULAR: Regular rate and rhythm. No obvious murmurs to auscultation. No chest tenderness to palpation. RESPIRATORY: No obvious rhonchi or wheezing. Clear to auscultation. Breath sounds equal bilaterally. GASTROINTESTINAL: Abdomen soft, non-tender, nondistended. BS normal. NEUROLOGICAL: Awake, alert and oriented x4. Very mild word finding difficulty otherwise no other deficits. Muscle strength testing is normal. Pt Condition on Discharge: Good Discharge Disposition: Discharge Home Discharge Time: > 30 minutes Discharge Instructions DIET: Follow Instructions for: Heart Healthy Diet Activities you can perform: Regular-No Restrictions Follow up Referrals: PCP Follow-up - 1 Week New Medications: Walker with Front Wheels (Walker with Front Wheels) 1 Mis Mis 1 EA .ROUTE DIRECTED #1 [address] (Aspirin EC) 325 Mg Tabdr 325 MG PO DAILY Blood Clot Prevention #60 TAB Topiramate (Topamax) 25 Mg Tab 25 MG PO Q12HR Headaches #60 TAB Continued Medications: Arformoterol Neb (Brovana Neb) 15 Mcg/2 Ml Vial 2 ML NEB BID Maintenance treatment of bronchoconstriction in COPD. Broncospasm # 60 NEBULE Ascorbic Acid (Vitamin C) 250 Mg Tab 250 MG PO EVERY OTHER DAY Nutritional Supplement Ref 0 TAB B-Complex Vitamins (Vitamin B Complex) 1 Tab 1 TAB PO EVERY OTHER DAY Bupropion HCl ER 12 HR (Wellbutrin SR 12 HR) 200 Mg Tab 200 MG PO BID Control Depression Ref 0 TAB Yvtkftkbgj-Utqglpt-Jlxpirpe-Codeine (Fiorinal-Codeine #3) 76-189-89-30 Mg Cap 1-2 CAP PO Q4H Do not exceed 6 capsules/day. PRN MIGRAINE HEADACHE Ref 0 CAP Calcium Carbonate (Calcium) 600 Mg Tab 600 MG PO HS Cholecalciferol (Vitamin D3) 400 Unit Tab 400 UNITS PO EVERY OTHER DAY Nutritional Supplement #1 Ref 0 TAB Cholestyramine (Cholestyramine) 4 Gm/Dose Powd 4 GM PO DAILY 1 level scoopful of powder contains 4 grams of cholestyramine. Dyslipidemia #1 Ref 0 CAN Cyclobenzaprine (Flexeril) 10 Mg Tab 10 MG PO TID Muscle Spasm #90 Ref 0 TAB Donepezil (Aricept) 23 Mg Tab 23 MG PO HS Do not split, crushed or chewed. TAB Epinephrine (Epipen) 0.3 Mg/0.3 Ml Auto.injct 0.3 MG IM ONCE PRN ALLERGIC REACTION Folic Acid (Folic Acid) 400 Mcg Tab 400 MCG PO EVERY OTHER DAY Nutritional Supplement Ref 0 TAB Gabapentin (Gabapentin) 300 Mg Cap 300 MG PO TID #90 Ref 0 CAP Guaifenesin (Guaifenesin) 400 Mg Tab 400 MG PO DAILY Ibuprofen (Ibuprofen) 800 Mg Tab 800 MG PO TID Arthritis Pain Ref 0 TAB Lisinopril (Lisinopril) 20 Mg Tab 20 MG PO DAILY #30 Ref 0 TAB Loratadine (Claritin) 10 Mg Tablet 10 MG PO DAILY Memantine Er (Namenda Xr) 28 Mg Caper 28 MG PO HS Alzheimer Disease #30 Ref 0 CAP Mometasone Nasal [place] (Nasonex Nasal Cold[place]) 50 Mcg/Act Naspr 2 SPRAY EACH NARE DAILY Allergy Management #1 Ref 0 BOTTLE Montelukast (Singulair) 10 Mg Tab 10 MG PO HS #30 Ref 0 TAB Multiple Vitamin (Multi-Vitamins) 1 Tab Tab 0.5 TAB PO BID Nitroglycerin Sublingual [place] (Nitrolingual Sublingual Pumpspray) 0.4 Mg/Act [place] 0.4 MG PO DIRECTED PRN CHEST PAIN [place]-3 Fatty Acids (Fish Oil 1000 mg) 1 Cap Cap 1000 MG PO DAILY Quinine (Quinine) 324 Mg Cap 324 MG PO HS Saline Nasal [place] (Saline Nasal Coldiron) 0.65% [place] 2 SPRAY EACH NARE DAILY PRN NASAL CONGESTION #1 Ref 0 BOTTLE Thiamine (Vitamin B-1) 250 Mg Tab 250 MG PO EVERY OTHER DAY Nutritional Supplement Ref 0 TAB Tiotropium Inh (Spiriva Handihaler) 18 Mcg Cap 18 MCG INH BID 1 capsule = 18 mcg COPD #30 Ref 0 CAP Vitamin E Mixed (Vitamin E) 400 Unit Tablet 400 UNITS PO EVERY OTHER DAY Rosita Mosley DO Nov 02, 2016 3:02 pm
--- NOTE | 2016-11-02 15:54 | HHI.PR ---
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 Diagnosis/Plan: Subjective Subjective Comments No acute events reported No headache Active Medications Current Medications Medications (Trade) Dose Ordered Sig/Christelle Route Start Time Stop Time Status Last Admin (Vasotec Inj) 1.25 mg Q4H PRN IV 10/31/16 20:15 (Pravachol) 40 mg HS PO 10/31/16 21:00 11/01/16 20:17 (NovoLOG SUPPLEMENTAL SCALE) 1 ACHS SQ 10/31/16 21:00 (D50w (Vial) Inj) 50 ml UNSCH PRN IV PUSH 10/31/16 20:15 (Glucagon Inj) 1 mg UNSCH PRN OTHER 10/31/16 20:15 (Lovenox Inj) 40 mg Q24H SQ 10/31/16 21:00 11/01/16 20:16 (NS Flush) 2 ml UNSCH PRN IV FLUSH 10/31/16 20:15 (NS Flush) 2 ml BID IV FLUSH 10/31/16 21:00 11/01/16 20:16 (Zofran Inj) 4 mg Q6H PRN IVP 10/31/16 20:15 (Tylenol) 650 mg Q6H PRN PO 10/31/16 20:15 ([place] 5-325 Mg) 1 tab Q4H PRN PO 10/31/16 20:15 11/01/16 13:17 (Morphine Inj) 2 mg Q3H PRN IV 10/31/16 20:15 (Bonnie-Colace) 1 tab BID PO 10/31/16 21:00 (Milk Of Magnesia Liq) 30 ml Q12H PRN PO 10/31/16 20:15 (Senokot) 17.2 mg Q12H PRN PO 10/31/16 20:15 (Dulcolax Supp) 10 mg DAILY PRN RECTAL 10/31/16 20:15 (Lactulose Liq) 30 ml DAILY PRN PO 10/31/16 20:15 (Ecotrin Ec) 325 mg DAILY PO 11/02/16 09:00 11/02/16 08:55 (Topamax) 25 mg Q12HR PO 11/01/16 14:00 11/02/16 08:56 (Wellbutrin Sr 12 Hr) 200 mg BID PO 11/01/16 21:00 11/02/16 09:00 (Questran 4 Gm Pkt) 4 gm DAILY PO 11/02/16 09:00 (Aricept) 23 mg HS PO 11/01/16 21:00 11/01/16 20:17 (Neurontin) 300 mg TID PO 11/01/16 18:00 11/02/16 09:00 (Motrin) 800 mg TID PO 11/01/16 18:00 11/02/16 14:56 (Prinivil) 20 mg DAILY PO 11/02/16 09:00 11/02/16 08:56 (Flonase Carlos Spr) 2 spray DAILY EACH NARE 11/02/16 09:00 11/02/16 08:51 (Singulair) 10 mg HS PO 11/01/16 21:00 11/01/16 20:17 ([place] Carlos Cantrall) 2 spray DAILY PRN EACH NARE 11/01/16 14:45 (Spiriva Inh) 18 mcg BID INH 11/01/16 21:00 11/02/16 08:53 Patient Own Medication PT OWN MED: BROV... BID NEB 11/01/16 21:00 Hold (Phrenilin 50-325 Mg) 1 tab Q4H PRN PO 11/01/16 15:30 Patient Own Medication PT OWN MED: NAMENDA... HS PO 11/01/16 21:00 Hold Allergies Allergies Coded Allergies Latex (Verified Allergy, Unknown, 10/31/16) Lomotil (Verified Allergy, Unknown, 10/31/16) Quinolones (Verified Allergy, Unknown, 10/31/16) Exam I&O / VS 11/01/16 11/01/16 11/02/16 15:00 23:00 07:00 Intake Total 720 ml 240 ml 360 ml Balance 720 ml 240 ml 360 ml Intake Oral 720 ml 240 ml 360 ml # Voids 4 2 2 # Bowel Movements 1 0 0 Vital Signs Date Time Temp Pulse Resp B/P Pulse Ox O2 Delivery O2 Flow Rate FiO2 11/02/16 11:13 98.2 68 20 134/69 95 11/02/16 08:55 67 11/02/16 08:00 97.9 67 20 158/81 94 11/02/16 04:38 96.7 66 16 146/78 96 11/02/16 00:45 97.3 72 16 104/50 95 11/01/16 23:00 72 11/01/16 20:47 97.1 62 16 120/68 96 11/01/16 20:00 65 11/01/16 19:00 96 21 11/01/16 17:52 66 11/01/16 16:00 96.8 66 17 155/75 96 Exam Comments alert, speech normal CN intact Kam Thapa PhD Nov 02, 2016 15:54
[2016-11-02 16:00] VITALS: BP 124/82; PULSE 76; RESP 20; TEMP 97.6; O2SAT 98
== END 2016-11-02 15:58 | disposition home or self-care (01) | DRG 65 ==
LOC: NEPE 17:55 → NEDA 20:14 → N06B 21:12
PROVIDERS: ADMIT Hospitalist; ATTEND Hospitalist
DX: I63.9 Cerebral infarction, unspecified (principal); J96.10 Chronic respiratory failure, unspecified whether with hypoxia or hypercapnia; I27.2 Other secondary pulmonary hypertension; J44.9 Chronic obstructive pulmonary disease, unspecified; G30.9 Alzheimer's disease, unspecified; F02.80 Dementia in other diseases classified elsewhere, unspecified severity, without behavioral disturbance, psychotic disturbance, mood disturbance, and anxiety; E86.0 Dehydration; I10 Essential (primary) hypertension; D64.9 Anemia, unspecified; E16.2 Hypoglycemia, unspecified; G43.109 Migraine with aura, not intractable, without status migrainosus; I69.320 Aphasia following cerebral infarction; F80.81 Childhood onset fluency disorder
CPT/HCPCS: 70450; 70551; 71010; 80053; 80061; 80307; 81001; 82140; 82948; 83036; 84443; 84484; 85025; 85610; 85730; 93005; 93306; 93880; 96360; J1650; J7030; P9612

== ENCOUNTER 2017-01-01 04:27 | Emergency (ER) | payer MEDICARE, OTHER ==
[~2017-01-01] VITALS: Ht 154.9 cm; Wt 65.0 kg
[~2017-01-01 04:27] MED LIST: ARIC23TA PO; ASPI325T33 PO; BROV15NE NEB; CALC600T25 PO; CHOL4POW3 PO; CLAR10TA7 PO; CYCL1TAB29 PO; EPIN0.3A2 IM; FIOR30CA12 PO; FISH100020 PO; FOLI400T PO; GABA300C5 PO; GUAI400T8 PO; IBUP800T23 PO; LISI-515 PO; MEMA28CA PO; MOME17I EACH NARE; MONT10TA2 PO; MULTTAB4 PO; NITRSPR6 PO; QUIN324C2 PO; SALI0.653 EACH NARE; SPIRCAP INH; TOPA25TA8 PO; VITA250T25 PO; VITA250T3 PO; VITA400T20 PO; VITATAB11 PO; VITD400 PO; WALKER WHEELS/F1 MIS; WELL200T PO
--- NOTE | 2017-01-01 04:33 | PD ---
HPI Chief Complaint: fell, head and neck pain Time Seen by Provider: 04:29 Travel History International Travel<30 days: No Contact w/Intl Traveler<30days: No Traveled to known affect area: No History of Present Illness HPI The patient is a 76-year-old female that fell asleep on her toilet at [facility]. She ultimately fell off the toilet and hurt her head and neck. She has some slight left scapular pain but she is moving her arm without any problem while range of motion. She denies any other injury. PFSH Past Medical History Autoimmune Disease: No Cancer: No Cardiovascular Problems: Yes COPD: Yes Cerebrovascular Accident: Yes (09/2012) Diabetes: No Endocrine: No Genitourinary: No Immune Disorder: No Musculoskeletal: No Neurologic: Yes Psychiatric: No Reproductive: No Respiratory: Yes Migraines: Yes Triglycerides - High: Yes Past Surgical History Gynecologic Surgery: Yes (HYSTERECTOMY) Social History Alcohol Use: No Tobacco Use: No Substance Use: No Allergies-Medications (Allergen,Severity, Reaction): Coded Allergies: latex (Verified Allergy, Severe, Anaphylaxis, 01/01/17) escitalopram (Verified Allergy, Mild, Diarrhea, 01/01/17) prednisolone (Verified Allergy, Mild, Diarrhea, 01/01/17) atropine (Verified Allergy, Unknown, 01/01/17) ciprofloxacin (Verified Allergy, Unknown, 01/01/17) diphenoxylate (Verified Allergy, Unknown, 01/01/17) Uncoded Allergies: QUNINOLONES (Allergy, Severe, Anaphylaxis, 01/01/17) Reported Meds & Prescriptions Reported Meds & Active Scripts Active Topamax (Topiramate) 25 Mg Tab 25 Mg PO Q12HR Walker with Front Wheels (Device) 1 Mis Mis 1 Ea .ROUTE DIRECTED Reported Aspirin Children's (Aspirin) 81 Mg Chew 81 Mg CHEW DAILY Vitamin D3 (Cholecalciferol) 400 Unit Tab 400 Units PO EVERY OTHER DAY Vitamin C (Ascorbic Acid) 250 Mg Tab 250 Mg PO EVERY OTHER DAY Saline Nasal [place] (Sodium Chloride) 0.65% [place] 2 [place] EACH NARE DAILY PRN Multi-Vitamins (Multiple Vitamin) 1 Tab Tab 0.5 Tab PO BID Fish Oil 1000 mg ([place]-3 Fatty Acids) 1 Cap Cap 1,000 Mg PO DAILY Folic Acid 400 Mcg Tab 400 Mcg PO EVERY OTHER DAY Guaifenesin 400 Mg Tab 400 Mg PO DAILY Claritin (Loratadine) 10 Mg Tablet 10 Mg PO DAILY Calcium (Calcium Carbonate) 600 Mg Tab 600 Mg PO HS Cholestyramine 4 Gm/Dose Powd 4 Gm PO DAILY 1 level scoopful of powder contains 4 grams of cholestyramine. Namenda Xr (Memantine) 28 Mg Caper 28 Mg PO HS Gabapentin 300 Mg Cap 300 Mg PO TID Quinine (Quinine Sulfate) 324 Mg Cap 324 Mg PO HS Epipen (Epinephrine) 0.3 Mg/0.3 Ml Auto.injct 0.3 Mg IM ONCE PRN Aricept (Donepezil) 23 Mg Tab 23 Mg PO HS Do not split, crushed or chewed. Nitrolingual Sublingual Pumpspray (Nitroglycerin) 0.4 Mg/Act [place] 0.4 Mg PO DIRECTED PRN Flexeril (Cyclobenzaprine HCl) 10 Mg Tab 10 Mg PO TID Wellbutrin SR 12 HR (Bupropion HCl) 200 Mg Tab 200 Mg PO BID Lisinopril 20 Mg Tab 20 Mg PO DAILY Fiorinal-Codeine #3 (Gcujfsbrpe-Jrbjeyb-Woacmyue-Codeine) 16-812-40-30 Mg Cap 1- 2 Cap PO Q4H PRN Do not exceed 6 capsules/day. Nasonex Nasal [place] (Mometasone Furoate) 50 Mcg/Act Naspr 2 [place] EACH NARE DAILY Brovana Neb (Arformoterol Neb) 15 Mcg/2 Ml Vial 2 Ml NEB BID Maintenance treatment of bronchoconstriction in COPD. Ibuprofen 800 Mg Tab 800 Mg PO TID Singulair (Montelukast Sodium) 10 Mg Tab 10 Mg PO HS Review of Systems Except as stated in HPI: all other systems reviewed are Neg Physical Exam Narrative GENERAL: The patient is alert, oriented 3 and slight apparent distress with her head and neck pain. SKIN: Focused skin assessment warm/dry. HEAD: Atraumatic. Normocephalic. EYES: Pupils equal and round. No scleral icterus. No injection or drainage. ENT: No nasal bleeding or discharge. Mucous membranes pink and moist. NECK: Trachea midline. No JVD. CARDIOVASCULAR: Regular rate and rhythm. No murmur appreciated. RESPIRATORY: No accessory muscle use. Clear to auscultation. Breath sounds equal bilaterally. GASTROINTESTINAL: Abdomen soft, non-tender, nondistended. Hepatic and splenic margins not palpable. MUSCULOSKELETAL: No obvious deformities. No clubbing. No cyanosis. No edema. NEUROLOGICAL: Awake and alert. No obvious cranial nerve deficits. Motor grossly within normal limits. Normal speech. PSYCHIATRIC: Appropriate mood and affect; insight and judgment normal. Data Data Last Documented VS Vital Signs Date Time Temp Pulse Resp B/P (MAP) Pulse Ox O2 Delivery O2 Flow Rate FiO2 01/01/17 04:34 97.6 65 15 170/82 (111) [address] Brain W/O Iv Contrast(Rout) (01/01/17 04:29) Ct Cerv Spine W/O Contrast (01/01/17 04:29) [facility] Medical Decision Making Medical Screen Exam Complete: Yes Emergency Medical Condition: Yes Medical Record Reviewed: Yes Interpretation(s) The CT brain shows no acute disease. The CT of the cervical spine shows no fracture or dislocation but does show diffuse degenerative changes. Differential Diagnosis Fractured cervical spine, dislocations cervical spine, arthritis cervical spine , skull fracture, intracranial bleed, scalp contusion Narrative Course Most of the pain is located in the neck. This is likely due to her arthritis of the cervical spine. The patient states she has adequate pain medications at home. The one thing she does want is Topamax because that prevents migraine headaches. 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 You can take the pain medications that you have at home for the cervical strain. Med/Other Pt SpecificInfo: Prescription(s) given Scripts Topiramate (Topamax) 25 Mg Tab 25 MG PO BID for Control Seizures, #60 TAB 0 Refills Prov: Fredy Joe MD 01/01/17 Disposition: DISCHARGE HOME Condition: Stable Fredy Joe MD Jan 01, 2017 04:33
[2017-01-01 04:34] VITALS: BP 170/82; PULSE 65; RESP 15; TEMP 97.6; O2SAT 98
[2017-01-01] MEDS ORDERED: ASPI81CH7 CHEW (04:58)
--- NOTE | 2017-01-01 06:20 | RADRPT ---
EXAM DATE/TIME: 01/01/2017 05:32 [place] COMPARISON: CT BRAIN W/O CONTRAST, October 31, 2016, 18:29. INDICATIONS : Status post fall RADIATION DOSE: 57.97 CTDIvol (mGy) ; Patient positioning; Patient motion MEDICAL HISTORY : Cerebrovascular disease. Alzheimer's. Hypertension. SURGICAL HISTORY : None. ENCOUNTER: Initial ACUITY: 1 day PAIN SCALE: 6/10 LOCATION: cranial TECHNIQUE: Multiple contiguous axial images were obtained of the head. Using automated exposure control and adj ustment of the mA and/or kV according to patient size, radiation dose was kept as low as reasonably a chievable to obtain optimal diagnostic quality images. DICOM format image data is available electro nically for review and comparison. FINDINGS: CEREBRUM: Atrophy. The ventricles are normal for age. No evidence of midline shift, mass lesion, hemorrhage or acute infarction. No extra-axial fluid collections are seen. POSTERIOR FOSSA: The cerebellum and brainstem are intact. The 4th ventricle is midline. The cerebellopontine angle i s unremarkable. EXTRACRANIAL: The visualized portion of the orbits is intact. SKULL: The calvaria is intact. No evidence of skull fracture. CONCLUSION: No acute disease. Chris Bass Jr., MD on January 01, 2017 at 6:16 Board Certified Radiologist. This report was verified electronically.
--- NOTE | 2017-01-01 06:24 | RADRPT ---
EXAM DATE/TIME: 01/01/2017 05:32 [place] COMPARISON: No previous studies available for comparison. INDICATIONS : Neck and shoulder pain post fall RADIATION DOSE: 26.00 CTDIvol (mGy) MEDICAL HISTORY : Alzheimer's Hypertension. Dementia. SURGICAL HISTORY : None. ENCOUNTER: Initial ACUITY: 1 day PAIN SCALE: 9/10 LOCATION: neck TECHNIQUE: Volumetric scanning of the cervical spine was performed. Multiplanar reconstructions in the sagittal, coronal and oblique axial planes were performed. Using automated exposure control and adjustment o f the mA and/or kV according to patient size, radiation dose was kept as low as reasonably achievable to obtain optimal diagnostic quality images. DICOM format image data is available electronically f or review and comparison. FINDINGS: VERTEBRAE: Normal vertebral body height. ALIGNMENT: There is a grade 1 anterolisthesis of C3 on C4. C2-C3: The bony spinal canal is normal in size. No evidence of disc bulge or herniation. Prominent bony unc overtebral hypertrophy generating no significant neural foraminal narrowing. C3-C4: The bony spinal canal is normal in size. No evidence of disc bulge or herniation. Prominent bony unc overtebral hypertrophy generating significant bilateral neural foraminal narrowing as well as narrowi ng of the right lateral recess. C4-C5: There is a broad-based disc osteophyte complex abuts the ventral portion of the cord. Prominent bony uncovertebral hypertrophy generating significant bilateral neural foraminal narrowing and bilateral l ateral recess narrowing. C5-C6: A broad-based disc osteophyte complex flattens the ventral portion of the cord. Prominent bony uncove rtebral hypertrophy generates bilateral lateral recess and neural foraminal narrowing. C6-C7: The bony spinal canal is normal in size. No evidence of disc bulge or herniation. The neural forami na are bilaterally patent. C7-T1: The bony spinal canal is normal in size. No evidence of disc bulge or herniation. The neural forami na are bilaterally patent. CONCLUSION: 1. No fracture or dislocation. 2. Diffuse degenerative changes as detailed above. Chris Bass Jr., MD on January 01, 2017 at 6:19 Board Certified Radiologist. This report was verified electronically.
[2017-01-01] MEDS ORDERED: TOPA25TA8 PO (06:34)
[2017-01-01 06:41] VITALS: BP 136/78; TEMP 97.6
[2017-01-01] MEDS ORDERED: IBUPROFEN 800 MG TAB PO ONE (07:00)
== END 2017-01-01 07:42 | disposition home or self-care (01) ==
LOC: PHED 04:27
DX: S16.1XXA Strain of muscle, fascia and tendon at neck level, initial encounter (principal); M47.892 Other spondylosis, cervical region; M25.512 Pain in left shoulder; J44.9 Chronic obstructive pulmonary disease, unspecified; W18.11XA Fall from or off toilet without subsequent striking against object, initial encounter; Y92.091 Bathroom in other non-institutional residence as the place of occurrence of the external cause; Z86.73 Personal history of transient ischemic attack (TIA), and cerebral infarction without residual deficits; Z79.82 Long term (current) use of aspirin; Z79.899 Other long term (current) drug therapy
CPT/HCPCS: 70450; 72125